=== PATIENT | female | born 2000 | race Caucasian/White ===

== ENCOUNTER → 2022-02-21 | Emergency (ER) | payer MEDICAID | END | disposition left against medical advice (07) | LOC: ER 20:40 | DX: U07.1 COVID-19 (principal); Z53.21 Procedure and treatment not carried out due to patient leaving prior to being seen by health care provider ==

== ENCOUNTER 2022-06-09 14:31 | Emergency (ER) | payer MEDICAID ==
[~2022-06-09] VITALS: Ht 170.2 cm; Wt 96.0 kg
[2022-06-09 15:18] VITALS: BP 140/106
[2022-06-09] MEDS ORDERED: KETOROLAC TROMETH 60MG/2ML VIAL IM ONE (16:00)
[2022-06-09] MEDS ORDERED: HYDROcodone-ACET 5/325MG TAB PO ONE (16:45)
[2022-06-09] MEDS ORDERED: CLIN300C8 PO ×2 (16:59→17:00)
[2022-06-09] MEDS ORDERED: IBUP800T27 PO ×2 (16:59→17:00)
== END 2022-06-09 17:04 | disposition home or self-care (01) ==
LOC: ER 14:32
DX: K04.7 Periapical abscess without sinus (principal); Z88.0 Allergy status to penicillin
CPT/HCPCS: 96372; 99283; J1885